=== PATIENT | female | born 1975 | race Caucasian/White ===

== ENCOUNTER 2023-01-15 20:07 | Inpatient (IN) | payer OTHER ==
[~2023-01-15] VITALS: Ht 160 cm; Wt 51.3 kg
[2023-01-16] MEDS ORDERED: NORTREL 1-35 21 EAC1 (10:51)
== END 2023-01-17 13:37 | disposition home or self-care (01) | DRG 390 ==
LOC: ER 20:07 → SEC-K 01-16 08:16 → MEDI 01-16 08:16
PROVIDERS: ADMIT Colon & Rectal Surgery; ATTEND Colon & Rectal Surgery
DX: K56.41 Fecal impaction (principal); Z20.822 Contact with and (suspected) exposure to COVID-19